=== PATIENT | male | born 1940 | race American Indian/Alaskan Native ===

== ENCOUNTER 2020-02-25 11:24 | Emergency (ER) | payer MEDICARE ==
[2020-02-25 11:37] VITALS: BP 154/95
[2020-02-25 12:18] LABS: Basophils % (Auto) 0.6 % (0.0-1.8); Eosinophils % (Auto) 0.5 % (0.0-4.3); Hemoglobin 14.9 gm/dl (11.8-15.2); Lymphocytes # (Auto) 1.1 K/mm3 (1.2-5.4); Lymphocytes % (Auto) 23.4 % (13.4-35.0); Mean Corpuscular HGB Conc 33 % (32-34); Mean Corpuscular Volume 88 fl (84-94); Monocytes # (Auto) 0.7 K/mm3 (0.0-0.8); Monocytes % (Auto) 13.8 % (0.0-7.3); Platelet Count 132 K/mm3 (140-440); Red Blood Count 5.09 M/mm3 (3.65-5.03); Red Cell Distribution Width 14.1 % (13.2-15.2)
[2020-02-25 12:42] LABS: Alanine Aminotransferase 16 units/L (7-56); Albumin 4.2 g/dL (3.9-5); BUN/Creatinine Ratio 18; Blood Urea Nitrogen 16 mg/dL (9-20); Calcium 9.5 mg/dL (8.4-10.2); Hemolysis Index 26
--- NOTE | 2020-02-25 14:19 | Emergency Department Report ---
ED Male HPI - General Chief complaint: Urogenital-Male Stated complaint: DIFFICULTY URINATING Time Seen by Provider: 02/25/20 12:49 Source: patient Mode of arrival: Ambulatory Limitations: No Limitations - History of Present Illness Initial comments: 79-year-old male with a past medical history of enlarged prostate with associated difficulty in urination presents to the hospital with complaints of inability to urinate since 1:30 AM. Patient states for the last several months he has been having difficulty initiating urinary stream. Apparently takes him 5 to 10 minutes to initiate urination after receiving the urge to go to the bathroom. Today was the longest time he has gone without urinating and initially came in reporting of severe 8/10 superpubic abdominal pain and inability to urinate. At time of my ED evaluation patient reports he had an episode of urination in which "a lot" of urine came out at one time. Unfortunately patient was not provided a cup to provide a sample in triage. He denies dysuria, fever, back pain and states he is much better after urinating patient was scheduled for a urodynamics test 3 days ago which was canceled because the die cast technician got sick. It has been rescheduled for 14 March. He is currently taking Flomax. Urologist: Dr. Peres - Related Data Allergies Allergy/AdvReac Type Severity Reaction Status Date / Time No Known Allergies Allergy Unverified 02/25/20 11:30 ED Review of Systems ROS: Stated complaint: DIFFICULTY URINATING Other details as noted in HPI Comment: All other systems reviewed and negative ED Past Medical Hx - Past Medical History Previous Medical History?: Yes Additional medical history: BPH - Surgical History Past Surgical History?: No ED Physical Exam - General Limitations: No Limitations - Other Other exam information: General: No acute distress Head: Atraumatic Eyes: normal appearance ENT: Moist mucous membranes Neck: Normal appearance, no midline tenderness Chest: Clear to auscultation bilaterally CV: Regular rate and rhythm Abdomen: Soft, normal bowel sounds, nontender, nondistended, no rebound or guar ding Back: Normal inspection Extremity: Normal inspection, full range of motion Neuro: Alert O x 3, no facial asymmetry, speech clear, no gross motor sensory deficit Psych: Appropriate behavior Skin: No rash ED Course Vital Signs 02/25/20 11:35 Temperature 98.1 F Pulse Rate 87 Respiratory 20 Rate Blood Pressure 154/95 [Right] O2 Sat by Pulse 98 Oximetry - Reevaluation(s) Reevaluation #1: 02/25/20 13:45 Bedside bladder scan showed a residual of 88 mL of urine in the bladder 02/25/20 14:29 Patient is agreeable to Floyd catheter insertion after discussion - Consultations Consultation #1: 02/25/20 14:[address] Peres his urologist who recommends Floyd catheter placement. Patient has declined offer for Floyd in the past ED Medical Decision Making - Lab Data Result diagrams: 02/25/20 11:41 02/25/20 11:41 Lab Results 02/25/20 02/25/20 Range/Units 11:41 11:41 WBC 4.8 (4.5-11.0) K/mm3 RBC 5.09 H (3.65-5.03) M/mm3 Hgb 14.9 (11.8-15.2) gm/dl Hct 45.0 (35.5-45.6) % MCV 88 (84-94) fl MCH 29 (28-32) pg MCHC 33 (32-34) % RDW 14.1 (13.2-15.2) % Plt Count 132 L (140-440) K/mm3 Lymph % (Auto) 23.4 (13.4-35.0) % Sheridan % (Auto) 13.8 H (0.0-7.3) % Eos % (Auto) 0.5 (0.0-4.3) % Baso % (Auto) 0.6 (0.0-1.8) % Lymph # (Auto) 1.1 L (1.2-5.4) K/mm3 Sheridan # (Auto) 0.7 (0.0-0.8) K/mm3 Eos # (Auto) 0.0 (0.0-0.4) K/mm3 Baso # (Auto) 0.0 (0.0-0.1) K/mm3 Seg Neutrophils % 61.7 (40.0-70.0) % Seg Neutrophils # 3.0 (1.8-7.7) K/mm3 Sodium 140 (137-145) mmol/L Potassium 3.7 (3.6-5.0) mmol/L Chloride 105.7 (98-107) mmol/L Carbon Dioxide 26 (22-30) mmol/L Anion Gap 12 mmol/L BUN 16 (9-20) mg/dL Creatinine 0.9 (0.8-1.3) mg/dL Estimated GFR > 60 ml/min BUN/Creatinine Ratio 18 % Glucose 124 H (75-100) mg/dL Calcium 9.5 (8.4-10.2) mg/dL Total Bilirubin 0.80 (0.1-1.2) mg/dL AST 19 (5-40) units/L ALT 16 (7-56) units/L Alkaline Phosphatase 80 (35-129) units/L Total Protein 7.1 (6.3-8.2) g/dL Albumin 4.2 (3.9-5) g/dL Albumin/Globulin Ratio 1.4 % - Medical Decision Making 79-year-old male presents to the hospital with acute on chronic urinary retention. Patient was able to urinate prior to Floyd catheter placement with a low postvoid residual. After discussion with patient's primary urologist Floyd catheter placement is recommended for recurrent urinary retention. Patient was agreeable to Floyd catheter insertion which occurred without incident 14 Russian coud catheter placed in the ED with urine output. Nurse reports difficulty passing a 16 Russian standard Floyd catheter Critical Care Time: No Critical care attestation.: If time is entered above; I have spent that time in minutes in the direct care of this critically ill patient, excluding procedure time. ED Disposition Clinical Impression: Urinary retention, Status post insertion of Floyd catheter Disposition: DC-01 TO HOME OR SELFCARE Is pt being admited?: No Does the pt Need Aspirin: No Condition: Stable Instructions: Acute Urinary Retention, Male, [id number], Indwelling Urinary Catheter Insertion, Care After Additional Instructions: Take the medication as prescribed. Follow-up with your doctor or doctor/clinic provided. Return if symptoms worsen as indicated by your discharge instructions. Referrals: ORQUIDEA PERES MD [Primary Care Provider] - 2-3 Days Time of Disposition: 16:37
[2020-02-25 15:51] LABS: Bilirubin,Urine NEG (Negative); Blood,Urine NEG (Negative); Color,Urine Yellow (Yellow); Mucus,Urine FEW /HPF; Protein,Urine <15 mg/dL mg/dL (Negative); Urobilinogen,Urine < 2.0 mg/dL (<2.0)
== END 2020-02-25 17:29 | disposition home or self-care (01) ==
LOC: ED 11:24
DX: R33.9 Retention of urine, unspecified (principal)
CPT/HCPCS: 36415; 51702; 80053; 81001; 85025